=== PATIENT | male | born 1995 | race African-American/Black ===

== ENCOUNTER 2024-04-19 20:58 | Emergency (ER) | payer SELFPAY ==
[~2024-04-19] VITALS: Ht 177.8 cm; Wt 62.0 kg
[2024-04-19 21:02] VITALS: O2SAT 99
[2024-04-19 21:04] VITALS: BP 121/69; PULSE 89; RESP 18; TEMP 36.9; O2SAT 100
[2024-04-19] MEDS ORDERED: OFLO5DRO4 LEFT EAR (21:18)
== END 2024-04-19 21:29 | disposition home or self-care (01) ==
LOC: ER 20:58
DX: S09.91XA Unspecified injury of ear, initial encounter (principal); W01.0XXA Fall on same level from slipping, tripping and stumbling without subsequent striking against object, initial encounter; Y93.89 Activity, other specified; Y92.89 Other specified places as the place of occurrence of the external cause; Y99.8 Other external cause status
CPT/HCPCS: 99283